=== PATIENT | female | born 1960 | race Caucasian/White ===

== ENCOUNTER → 2022-07-09 | Outpatient (CLI) | payer OTHER ==
[~2022-07-09] MED LIST: ASPI81CH; Benadryl 50 mg50 MG PO; CYCL10; HYDCHL25; LEVSOD50; LOSA25; METF500; METO25ER; OMEP10ER; TRAM50
== END | disposition home or self-care (01) ==
LOC: LAB SHORT 18:03
DX: N39.0 Urinary tract infection, site not specified (principal)
CPT/HCPCS: 87086

== ENCOUNTER → 2024-06-27 | Outpatient (CLI) | payer MEDICARE, OTHER ==
[~2024-06-27] MED LIST changes: +ACYCLOVIR400 MG PO; +IBU800 M1 PO; +LIPITOR80 MG PO; +SPIRONOLACTONE50 MG PO; +TRAZ100 PO
[2024-06-27 13:22] LABS: Microalb/Creat Ratio UR, Rand 4.354 mg/g (0.000-30.000); Microalbumin, Random Urine 5.53 mg/L (0.000-20.000)
== END | disposition home or self-care (01) ==
LOC: LAB SHORT 09:26 → LAB 09:26
PROVIDERS: Family Medicine
DX: E11.8 Type 2 diabetes mellitus with unspecified complications (principal)
CPT/HCPCS: 82043; 82570